=== PATIENT | male | born 1940 | race Caucasian/White ===

== ENCOUNTER 2025-06-14 11:08 | Outpatient (AMB) | payer MEDICARE, SELFPAY ==
--- NOTE | 2025-06-14 11:10 | A.OFFVIS_ITS ---
Intake Visit Reasons: 6m mci Accompanied by: Daughter Allergies No Known Allergies Allergy (Verified 06/14/25 11:21) Medication List - Last Reconciled 06/14/25 by Michelle Roberts CNP cholecalciferol (vitamin D3) 50 mcg PO DAILY clotrimazole-betamethasone 1-0.05 % appl topical docusate sodium 100 mg PO DAILY ezetimibe 10 mg PO DAILY finasteride 5 mg PO DAILY folic acid 1 mg PO DAILY levothyroxine mcg PO melatonin 1 mg PO BEDTIME PRN metoprolol succinate ER 25 mg PO DAILY midodrine 5 mg PO BID sertraline 50 mg PO DAILY HPI Comments Details: Memory was not so good, and he was more forgetful. Had pneumonia in summer 2024 and was hospitalized, discharged to rehab, and was back home. He was living with his grand-daughter (but said he lived with his daughter), and had [employer] 4 days/week. Balance was off at times and he was in PT 2x/week. He was walking with cane, no falls. He sometimes had trouble getting out of bed in the morning and felt stiff. He noted some shaking in his hands, most often in the evening when resting, that did not bother him much or interfere with activities. Sleep was okay. Mood was okay. Meals made by caregivers, can get his coffee and cereal. He needs help with shower (has shower chair). On November 10, 2023 he went in for elective stent in his abdominal aorta which was complicated with atrial fibrillation. He also developed orthostatic hypotension. He is now home and has been noted to have memory loss and confusion, which is new, within the last year.? 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 He gets around with assistance and a cane. [facility], [facility] Medical History (Updated 06/14/25 @ 11:36 by Michelle Roberts CNP) Hypothyroidism Peripheral arterial disease Orthostatic hypotension Hyperlipidemia Afib Aortic aneurysm Surgical History (Updated 06/14/25 @ 11:19 by Michelle Roberts CNP) H/O endarterectomy Review of Systems Const Denies chills, Denies daytime sleepiness, Reports difficulty sleeping, Denies fatigue, Denies fever(s), Denies frequent falls, Denies headache(s), Denies increased appetite, Denies poor appetite, Reports snoring, Denies weakness, Denies weight gain and Denies weight loss Eyes Denies loss of vision ENT Denies vertigo, Denies dizziness, Denies headache(s) and Denies neck pain Card Denies chest pain at rest, Denies chest pain with activity, Denies syncope, Denies leg edema, Denies palpitations, Denies dyspnea and Denies dyspnea on exertion Resp Denies cough, Denies dyspnea, Denies dyspnea on exertion and Reports snoring GI Denies abdominal pain, Denies constipation, Denies heartburn, Denies diarrhea and Denies nausea Denies urinary frequency, Denies urinary incontinence and Denies urinary urgency Musc Denies abnormal gait, Denies back pain, Denies myalgias, Denies arthralgias, Denies neck pain, Denies numbness and Denies tingling Neuro Denies abnormal gait, Denies vertigo, Denies dizziness, Denies syncope, Denies frequent falls, Denies headache(s), Denies lack of coordination, Denies loss of vision, Reports memory loss, Denies numbness, Denies Other visual disturbances, Denies restless legs, Denies seizure-like activity, Denies tingling, Denies paresthesias, Denies tremor(s) and Denies weakness Psych Denies anxiety, Reports depression, Denies auditory hallucinations, Reports memory loss and Denies visual hallucinations Endo Denies fatigue and Denies palpitations Physical Exam Const Other: General Appearance:? normal, in no acute distress. Heart:? S1, S2 normal, no murmurs. Lungs:? clear anteriorly and posteriorly. Musculoskeletal:? normal. Extremities:? no edema. Psych:? alert, as below. Neuro Other: Abnormal Neurological Findings: MMSE 23/30. Walking with cane, shuffling gait and decreased arm swing. Decreased facial expressions and reduced blinking frequency. Cogwheeling rigidity, R > L. FTN with mild tremor. Mental Status: alert, as below. Cranial Nerves: Pupils are equal, round, and reactive to light. External ocular muscles are intact. Visual barker are full, no ptosis. Face is symmetrical, no facial weakness or droop. Facial sensations are normal. Tongue protrudes in midline. Palate elevates symmetrically. Shoulder shrugging is normal Motor Examination: Normal muscle tone, bulk and strength. No atrophy or fasciculations. No drift of the extended upper extremities. DTR 2+. Plantars are flexor. Sensory Exam: Normal light touch, temperature, pinprick, vibration, and joint- position sensations. Rhomberg sign is absent. Coordination: No ataxia. No titubation. Gait Exam: With cane, with shuffling gait and decreased arm swing. Cerebellar Signs: [id number] with mild tremor. Extrapyramidal System: As above. Speech: Normal. MMSE Level of Consciousness: Alert. Orientation: Knows correct month and season. Not year, date, or day. Knows correct city, county and state. Knows correct location and floor. Registration: Able to register 3 objects. Attention: Serial 7's performed accurately to 72. Recall: Able to recall 0 out of 3 objects. Language: Normal spontaneous speech, fluency, repetition, naming, comprehension, reading, and writing. Total Score: 23/30. Results Reviewed Results Reviewed: 08/05/24 EEG awake and sleep within normal limits Labs 07/2024: elevated TSH 16 with normal T3 and T4 Assessment & Plan Assessment & Plan (1) Parkinsons disease: Code(s): G20 - Parkinson's disease Category: Medical Plan: Start carbidopa-levodopa 25-100mg 1/2 tablet twice a day x2 weeks, then 1 tablet twice a day, use/side effects reviewed. MRI brain ordered (r/o hydrocephalus). They were asked to bring CD of MRI to follow up appointment for review. May consider Taryn scan in the future. (2) MCI (mild cognitive impairment): Code(s): G31.84 - Mild cognitive impairment of uncertain or unknown etiology Category: Medical (3) Right carotid artery occlusion: Code(s): I65.21 - Occlusion and stenosis of right carotid artery Category: Medical Plan Exam, findings, and plan discussed with Dr. Rendon. Orders: Orders MR head/brain wo con Today G20 - Parkinson's disease Medications: New carbidopa-levodopa 25-100 mg (Sinemet) 1 tab orally 1/2 tab twice a day x2 weeks, then 1 tab twice a day; at 8a, 12p 60 tabs 1RF 30 days Coding Level of Care Code Est Pt Level 4 (80741) Diagnoses Parkinsons disease G20 MCI (mild cognitive impairment) G31.84 Right carotid artery occlusion I65.21
== END 2025-06-14 11:48 | disposition home or self-care (01) ==
LOC: HO.HSM 11:08
PROVIDERS: PCP Internal Medicine; Referring Provider Internal Medicine; Visit Provider Registered Nurse
DX: G20.A1 Parkinson's disease without dyskinesia, without mention of fluctuations (principal); G31.84 Mild cognitive impairment of uncertain or unknown etiology; I65.21 Occlusion and stenosis of right carotid artery
CPT/HCPCS: 99214

== ENCOUNTER → 2025-06-14 11:08 | Outpatient (BNVA) | payer MEDICARE, SELFPAY | PROVIDERS: PCP Internal Medicine; Referring Provider Internal Medicine; Visit Provider Registered Nurse | DX: G20.C Parkinsonism, unspecified (principal); I65.21 Occlusion and stenosis of right carotid artery | CPT/HCPCS: 99212 ==

== ENCOUNTER 2025-07-31 14:51 | Outpatient (AMB) | payer MEDICARE, SELFPAY ==
--- NOTE | 2025-07-31 14:52 | MHC.OFFVIS ---
Intake Visit Reasons: MRI review Accompanied by: Daughter Allergies No Known Allergies Allergy (Verified 07/31/25 14:54) Medication List - Last Reconciled 07/31/25 by Michelle Roberts CNP cholecalciferol (vitamin D3) 50 mcg PO DAILY clotrimazole-betamethasone 1-0.05 % appl topical docusate sodium 100 mg PO DAILY ezetimibe 10 mg PO DAILY finasteride 5 mg PO DAILY folic acid 1 mg PO DAILY levothyroxine mcg PO melatonin 1 mg PO BEDTIME PRN midodrine 2.5 mg PO BID sertraline 50 mg PO DAILY HPI Comments Details: He tried carbidopa-levodopa 25-100mg and did okay with 1/2 tablet twice a day, but daughter noted that he had more falls and confusion when dose was increased to 1 tablet twice a day. They reduced dose back to 1/2 tablet and then stopped medication without improvement in symptoms. He went to rehab twice since last appointment, and was currently in rehab, because of worsening balance and increased falls. He was also incontinent of urine. His daughter had copy of MRI report on phone, but did not have CD of MRI. Previously, memory was not so good, and he was more forgetful. Had pneumonia in summer 2024 and was hospitalized, discharged to rehab, and was back home. He was living with his grand-daughter (but said he lived with his daughter), and had [employer] 4 days/week. Balance was off at times and he was in PT 2x/week. He was walking with cane, no falls. He sometimes had trouble getting out of bed in the morning and felt stiff. He noted some shaking in his hands, most often in the evening when resting, that did not bother him much or interfere with activities. Sleep was okay. Mood was okay. Meals made by caregivers, can get his coffee and cereal. He needs help with shower (has shower chair). On November 10, 2023 he went in for elective stent in his abdominal aorta which was complicated with atrial fibrillation. He also developed orthostatic hypotension. He is now home and has been noted to have memory loss and confusion, which is new, within the last year.? 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 He gets around with assistance and a cane. [facility] Medical History (Updated 07/31/25 @ 15:07 by Michelle Roberts CNP) Hypothyroidism Peripheral arterial disease Orthostatic hypotension Hyperlipidemia Afib Aortic aneurysm Surgical History (Updated 06/14/25 @ 11:19 by Michelle Roberts CNP) H/O endarterectomy Review of Systems Const Denies chills, Denies daytime sleepiness, Reports difficulty sleeping, Denies fatigue, Denies fever(s), Denies frequent falls, Denies headache(s), Denies increased appetite, Denies poor appetite, Reports snoring, Denies weakness, Denies weight gain and Denies weight loss Eyes Denies loss of vision ENT Denies vertigo, Denies dizziness, Denies headache(s) and Denies neck pain Card Denies chest pain at rest, Denies chest pain with activity, Denies syncope, Denies leg edema, Denies palpitations, Denies dyspnea and Denies dyspnea on exertion Resp Denies cough, Denies dyspnea, Denies dyspnea on exertion and Reports snoring GI Denies abdominal pain, Denies constipation, Denies heartburn, Denies diarrhea and Denies nausea Denies urinary frequency, Reports urinary incontinence and Denies urinary urgency Musc Denies abnormal gait, Denies back pain, Denies myalgias, Denies arthralgias, Denies neck pain, Denies numbness and Denies tingling Neuro Denies abnormal gait, Denies vertigo, Denies dizziness, Denies syncope, Denies frequent falls, Denies headache(s), Denies lack of coordination, Denies loss of vision, Reports memory loss, Denies numbness, Denies Other visual disturbances, Denies restless legs, Denies seizure-like activity, Denies tingling, Denies paresthesias, Denies tremor(s) and Denies weakness Psych Denies anxiety, Reports depression, Denies auditory hallucinations, Reports memory loss and Denies visual hallucinations Endo Denies fatigue and Denies palpitations Physical Exam Const Other: General Appearance:? normal, in no acute distress. Heart:? S1, S2 normal, no murmurs. Lungs:? clear anteriorly and posteriorly. Musculoskeletal:? normal. Extremities:? no edema. Psych:? alert, as below. Neuro Other: Abnormal Neurological Findings: MMSE 23/30. Decreased facial expressions and reduced blinking frequency. Cogwheeling rigidity, R > L. FTN with mild tremor. In wheelchair Mental Status: alert, as below. Cranial Nerves: Pupils are equal, round, and reactive to light. External ocular muscles are intact. Visual barker are full, no ptosis. Face is symmetrical, no facial weakness or droop. Facial sensations are normal. Tongue protrudes in midline. Palate elevates symmetrically. Shoulder shrugging is normal. Hearing to bedside conversation is decreased. Motor Examination: Normal muscle tone, bulk and strength. No atrophy or fasciculations. No drift of the extended upper extremities. DTR 2+. Plantars are flexor. Sensory Exam: Normal light touch, temperature, pinprick, vibration, and joint-position sensations. Rhomberg sign is absent. Coordination: No ataxia. No titubation. Gait Exam: In wheelchair. Cerebellar Signs: [id number] with mild tremor. (Previously with cane, with shuffling gait and decreased arm swing). Extrapyramidal System: As above. Speech: Normal. MMSE Level of Consciousness: Alert. Orientation: Knows correct year and season. Not month, date, or day. Knows correct city, county and state. Knows correct location and floor. Registration: Able to register 3 objects. Attention: Serial 7's performed accurately to 72. Recall: Able to recall 0 out of 3 objects. Language: Normal spontaneous speech, fluency, repetition, naming, comprehension, reading, and writing. Total Score: 23/30. Results Reviewed Results Reviewed: 08/05/24 EEG awake and sleep within normal limits Labs 07/2024: elevated TSH 16 with normal T3 and T4 MRI brain at [facility] 06/30/2025: Atrophic changes with somewhat out of proportion dilation of the ventricular system, involving the temporal horn as well as other portions of the ventricular system. Possibility of normal pressure hydrocephalus should be considered. Extensive white matter signal abnormalities in the supratentorial white matter which could be due to chronic small vessel ischemia, small lacunar infarctions, infectious/inflammatory etiology, vasculities, among other possibilities. Please correlate clinically (reported). Assessment & Plan Assessment & Plan (1) Normal pressure hydrocephalus: Code(s): G91.2 - (Idiopathic) normal pressure hydrocephalus Category: Medical Plan: No improvement in symptoms with carbidopa-levodopa and medication was stopped. Symptoms of gait disturbance, memory impairment, and incontinence are consistent with diagnosis of NPH. His daughter had copy of MRI report available on her phone which was reviewed - suggesting possibility of NPH. MRI was ordered at previous appointment to r/o NPH. CD of MRI was not available for review at this time. For proper diagnosis and treatment, she was asked to get copy of CD and drop off at office so MRI images could be reviewed. Will request copy of MRI report. (2) MCI (mild cognitive impairment): Code(s): G31.84 - Mild cognitive impairment of uncertain or unknown etiology Category: Medical (3) Right carotid artery occlusion: Code(s): I65.21 - Occlusion and stenosis of right carotid artery Category: Medical Plan Meds tried: carbidopa-levodopa Coding Level of Care Code Est Pt Level 4 (72051) Diagnoses Normal pressure hydrocephalus G91.2 MCI (mild cognitive impairment) G31.84 Right carotid artery occlusion I65.21
--- OUTSIDE RECORDS SUMMARY | 2025-08-01 00:14 | XMS_ITS ---
Author Name [facility] Organization Unknown Care Team Organization Name Specialty Phone Email Start Date End Da te [facility] 04/12/2025 [facility] 07/01/2022
== END 2025-07-31 15:11 | disposition home or self-care (01) ==
PROVIDERS: PCP Internal Medicine; Visit Provider Registered Nurse
DX: G91.2 (Idiopathic) normal pressure hydrocephalus (principal); G31.84 Mild cognitive impairment of uncertain or unknown etiology; I65.21 Occlusion and stenosis of right carotid artery
CPT/HCPCS: 99214

== ENCOUNTER → 2025-07-31 14:51 | Outpatient (BNVA) | payer MEDICARE, SELFPAY | PROVIDERS: PCP Internal Medicine; Visit Provider Registered Nurse | DX: G91.2 (Idiopathic) normal pressure hydrocephalus (principal); G31.84 Mild cognitive impairment of uncertain or unknown etiology | CPT/HCPCS: 99212 ==